=== PATIENT | male | born 1970 | race Two or more races ===

== ENCOUNTER → 2020-06-25 14:03 | Outpatient (CLI) | payer OTHER | END | disposition home or self-care (01) | LOC: LAB 14:03 | PROVIDERS: ATTEND Urology | DX: R97.20 Elevated prostate specific antigen [PSA] (principal); B96.29 Other Escherichia coli [E. coli] as the cause of diseases classified elsewhere ==

== ENCOUNTER 2020-07-02 07:09 | Outpatient (CLI) | payer OTHER | END 2020-07-02 07:17 | disposition home or self-care (01) | LOC: SONOGRAMA 07:09 | PROVIDERS: ATTEND Urology | DX: C61 Malignant neoplasm of prostate (principal); R97.20 Elevated prostate specific antigen [PSA] ==